=== PATIENT | female | born 1995 | race Caucasian/White ===

== ENCOUNTER 2018-05-26 10:09 | Emergency (ER) | payer MEDICAID, OTHER ==
[2018-05-26 10:27] VITALS: BMI 44.4
[2018-05-26 10:28] VITALS: PULSE 85; RESP 17; TEMP 98.5
--- NOTE | 2018-05-26 11:15 | ED PDOC ---
HPI: General Adult Time Seen by Provider: 05/26/18 10:34 Chief Complaint (Nursing): Weakness/Neurological Deficit Chief Complaint (Provider): Weakness/Neurological Deficit History Per: Patient Onset/Duration Of Symptoms: Days (x4 days) Additional Complaint(s): 22 year old female with no past medical history, who presents to the emergency department complaining of either having the flu or being . Patient state s that she has been vaginal spotting for the past x4 days with minimal pelvic cramping. PMD: no provider Past Medical History Reviewed: Historical Data, Nursing Documentation, Vital Signs Vital Signs: Last Vital Signs Temp 98.5 F 05/26/18 10:27 Pulse 85 05/26/18 10:27 Resp 17 05/26/18 10:27 BP 136/81 05/26/18 10:27 Pulse Ox 98 05/26/18 10:39 - Medical History PMH: Seizures Denies: Diabetes, Hepatitis, HIV, HTN, Sexually Transmitted Disease - Surgical History Surgical History: No Surg Hx - Family History Family History: States: Unknown Family Hx - Home Medications Home Medications: Ambulatory Orders Medication Instructions Recorded Ibuprofen [Motrin] 600 mg PO Q8 PRN #21 tab 01/06/15 Naproxen [Naprosyn] 500 mg PO BID PRN #15 tablet 05/26/18 - Allergies Allergies/Adverse Reactions: Allergies Allergy/AdvReac Type Severity Reaction Status Date / Time peanut Allergy Mild RASH Verified 05/26/18 10:37 Review of Systems ROS Statement: Except As Marked, All Systems Reviewed And Found Negative Genitourinary Female: Positive for: Vaginal Bleeding Physical Exam - Reviewed Nursing Documentation Reviewed: Yes Vital Signs Reviewed: Yes - Physical Exam Appears: Positive for: Non-toxic, No Acute Distress Head Exam: Positive for: ATRAUMATIC, NORMOCEPHALIC Skin: Positive for: Normal Color, Warm, Dry Eye Exam: Positive for: Normal appearance, EOMI, PERRL ENT: Positive for: Normal ENT Inspection Neck: Positive for: Normal, Painless ROM, Supple Cardiovascular/Chest: Positive for: Regular Rate, Rhythm. Negative for: Murmur Respiratory: Positive for: Normal Breath Sounds. Negative for: Respiratory Distress Gastrointestinal/Abdominal: Positive for: Tenderness (mild right suprapubic tenderness) Back: Positive for: Normal Inspection. Negative for: L CVA Tenderness, R CVA Tenderness, Vertebral Tenderness Extremity: Positive for: Normal ROM. Negative for: Pedal Edema, Deformity Neurologic/Psych: Positive for: Alert, Oriented. Negative for: Motor/Sensory Deficits - ECG O2 Sat by Pulse Oximetry: 98 (RA) Pulse Ox Interpretation: Normal Medical Decision Making Medical Decision Makin Impression: vaginal spotting Plan: --ED urine --ED urine dipstick Accession No. : [id number] Patient Name / ID : WILLEM GOMEZ / [id number] Exam Date : 05/26/2018 12:35:32 ( Approved ) Study Comment : Sex / Age : F / 22Y Creator : Stephane Cheung MD Dictator : Stephane Cheung MD Security Advisor : Communications Senior Associate : Stephane Cheung MD Approver2 : Report Date : 05/26/2018 13:43:28 My Comment : Date of service: 05/26/2018 HISTORY: Right-sided pelvic pain. LMP 04/30/2018. COMPARISON: None available. TECHNIQUE: Transabdominal, transvaginal. Real -time technique with 2D, duplex and color Doppler. FINDINGS: UTERUS: Measures 4.2 x 4.7 x 7.8 cm. Normal in size and appearance. No fibroid or other mass lesion seen. ENDOMETRIUM: Measures 16.3 mm in diameter. Endometrial hypertrophy without focal abnormality. CERVIX: No cervical abnormality identified. RIGHT OVARY: Measures 2.1 x 2.7 x 3.3 cm. No solid mass. Normal flow. Cysts 1.5 x 1.2 x 1.4 cm. LEFT OVARY: Measures 1.9 x 1.7 x 2.1 cm. No solid mass. Normal flow. FREE FLUID: Trace free fluid identified in the pelvis/cul de sac. OTHER FINDINGS: None. IMPRESSION: Endometrial hypertrophy without focal endometrial abnormality. Simple cyst right adnexa. Scribe Attestation: Documented by Corbin Scott, acting as a scribe for Brandy De Jesus MD. Provider Scribe Attestation: All medical record entries made by the Scribe were at my direction and personally dictated by me. I have reviewed the chart and agree that the record accurately reflects my personal performance of the history, physical exam, medical decision making, and the department course for this patient. I have also personally directed, reviewed, and agree with the discharge instructions and disposition. Disposition - Clinical Impression Clinical Impression: Menstrual cramps - Disposition Referrals: [facility] [Outside] Disposition: Routine/Home Disposition Time: 13:54 Condition: STABLE Prescriptions: Naproxen [Naprosyn] 500 mg PO BID PRN #15 tablet PRN Reason: Pain, Moderate (4-7) Instructions: Menstrual Cramps Forms: [employer] (Paraguayan)
[2018-05-26 12:41] LABS: SQUAMOUS EPITHIAL 5 /hpf (0-5); URINE AMORPHOUS SEDIMENT RARE /ul (<OCC); URINE BILIRUBIN NEGATIVE (NEGATIVE); URINE BLOOD NEGATIVE (NEGATIVE); URINE CLARITY SLIGHTY-CLOUDY (Clear); URINE COLOR YELLOW (YELLOW); URINE GLUCOSE (UA) NEG (NEGATIVE); URINE LEUKOCYTE ESTERASE NEG Leu/uL (Negative); URINE PROTEIN NEGATIVE (NEGATIVE); URINE UROBILINOGEN 0.2-1.0 mg/dL (0.2-1.0)
--- NOTE | 2018-05-26 13:47 | US ---
Date of service: 05/26/2018 HISTORY: Right-sided pelvic pain. LMP 04/30/2018. COMPARISON: None available. TECHNIQUE: Transabdominal, transvaginal. Real -time technique with 2D, duplex and color Doppler. FINDINGS: UTERUS: Measures 4.2 x 4.7 x 7.8 cm. Normal in size and appearance. No fibroid or other mass lesion seen. ENDOMETRIUM: Measures 16.3 mm in diameter. Endometrial hypertrophy without focal abnormality. CERVIX: No cervical abnormality identified. RIGHT OVARY: Measures 2.1 x 2.7 x 3.3 cm. No solid mass. Normal flow. Cysts 1.5 x 1.2 x 1.4 cm. LEFT OVARY: Measures 1.9 x 1.7 x 2.1 cm. No solid mass. Normal flow. FREE FLUID: Trace free fluid identified in the pelvis/cul de sac. OTHER FINDINGS: None. IMPRESSION: Endometrial hypertrophy without focal endometrial abnormality. Simple cyst right adnexa.
[2018-05-26 15:09] VITALS: BP 132/82
[2018-05-30 09:51] VITALS: O2SAT 98
== END 2018-05-26 13:55 | disposition home or self-care (01) ==
LOC: H.ER 10:09
DX: N94.6 Dysmenorrhea, unspecified (principal)

== ENCOUNTER 2018-06-24 09:37 | Emergency (ER) | payer MEDICAID ==
[2018-06-24 09:37] VITALS: BMI 44.4
[2018-06-24 09:41] VITALS: RESP 15; O2SAT 100
--- NOTE | 2018-06-24 10:04 | ED PDOC ---
HPI: General Adult Time Seen by Provider: 06/24/18 09:44 Chief Complaint (Nursing): Pain, Chronic Chief Complaint (Provider): Pain diffuse History Per: Patient History/Exam Limitations: no limitations Onset/Duration Of Symptoms: Days Additional Complaint(s): Pt. with body aches for 3 months. States seen by 3 hospitals and was told to see a linotypist. Thinks it is lupus. Has not taken any meds for it. No nausea, vomit, diarrhea, weakness, headaches, dizziness, chest pain, dyspnea, calf pain, abd pain, or other symptoms. Lives in the retirement and unable to afford to get to the doctor. Past Medical History Reviewed: Nursing Documentation, Vital Signs Vital Signs: Last Vital Signs Temp 98.1 F 06/24/18 09:40 Pulse 79 06/24/18 09:40 Resp 15 06/24/18 09:40 BP 116/71 06/24/18 09:40 Pulse Ox 100 06/24/18 09:40 - Medical History PMH: Anxiety, Cardia Arrhythmia (WPW), Chronic Pain Denies: Alzheimer's Disease, Diabetes, Hepatitis, HIV, HTN, Chronic Kidney Disease, Sexually Transmitted Disease - Surgical History Surgical History: No Surg Hx - Family History Family History: States: Unknown Family Hx - Immunization History Hx Tetanus Toxoid Vaccination: No Hx Influenza Vaccination: No Hx Pneumococcal Vaccination: No - Home Medications Home Medications: Ambulatory Orders Medication Instructions Recorded Ibuprofen [Motrin] 600 mg PO Q8 PRN #21 tab 01/06/15 Ibuprofen [Motrin Tab] 600 mg PO Q6H PRN 6 Days #24 tab 04/25/18 Naproxen [Naprosyn] 500 mg PO BID PRN #15 tablet 05/26/18 Ibuprofen [Motrin] 600 mg PO TID 7 Days tab 06/24/18 - Allergies Allergies/Adverse Reactions: Allergies Allergy/AdvReac Type Severity Reaction Status Date / Time peanut Allergy Mild RASH Verified 06/03/18 08:38 milk Allergy ANAPHYLAXIS Verified 06/03/18 08:38 Penicillins Allergy ANAPHYLAXIS Verified 06/03/18 08:38 shellfish derived Allergy ANAPHYLAXIS Verified 06/03/18 08:38 Review of Systems ROS Statement: Except As Marked, All Systems Reviewed And Found Negative Musculoskeletal: Positive for: Other (body aches) Physical Exam - Reviewed Nursing Documentation Reviewed: Yes Vital Signs Reviewed: Yes - Physical Exam Appears: Positive for: Non-toxic, No Acute Distress Head Exam: Positive for: ATRAUMATIC, NORMAL INSPECTION, NORMOCEPHALIC Skin: Positive for: Normal Color, Warm, DRY Eye Exam: Positive for: EOMI, Normal appearance, PERRL ENT: Positive for: Normal ENT Inspection Neck: Positive for: Normal, Painless ROM Cardiovascular/Chest: Positive for: Regular Rate, Rhythm Respiratory: Positive for: CNT, Normal Breath Sounds Gastrointestinal/Abdominal: Positive for: Normal Exam, Soft. Negative for: Tenderness Back: Positive for: Normal Inspection. Negative for: L CVA Tenderness, R CVA Tenderness Extremity: Positive for: Normal ROM. Negative for: Tenderness, Pedal Edema Neurologic/Psych: Positive for: Alert, conduit mechanic II-XII, Oriented. Negative for: Motor/Sensory Deficits, Facial Droop - ECG O2 Sat by Pulse Oximetry: 100 Pulse Ox Interpretation: Normal - Progress ED Course And Treament: 1013: Stable. AAOx3. Pain free. Tolerated PO. Fu with pcp. Chronic pain. Disposition - Clinical Impression Clinical Impression: Chronic pain - Patient ED Disposition Is Patient to be Admitted: No Counseled Patient/Family Regarding: Studies Performed, Diagnosis, Need For Followup, Rx Given - Disposition Referrals: [facility] [Outside] - 06/25/18 Disposition: Routine/Home Disposition Time: 10:14 Condition: STABLE Additional Instructions: Return if not better in 3 days. Prescriptions: Ibuprofen [Motrin] 600 mg PO TID 7 Days tab Instructions: Chronic Pain (DC)
[2018-06-24 11:30] VITALS: BP 116/62; PULSE 72; TEMP 98
== END 2018-06-24 12:08 | disposition home or self-care (01) ==
LOC: H.ER 09:37
DX: G89.29 Other chronic pain (principal); Z88.0 Allergy status to penicillin